=== PATIENT | female | born 1980 | race Caucasian/White ===

== ENCOUNTER 2019-06-22 16:41 | Emergency (ER) | payer MEDICAID ==
[~2019-06-22] VITALS: Ht 167.6 cm; Wt 68.9 kg
[2019-06-22 16:42] VITALS: Ht 167.6 cm; Wt 68.9 kg
[2019-06-22 18:56] VITALS: BP 128/72
== END 2019-06-22 18:56 | disposition home or self-care (01) ==
LOC: ED 16:41
DX: R10.816 Epigastric abdominal tenderness (principal); R11.2 Nausea with vomiting, unspecified; M25.511 Pain in right shoulder